=== PATIENT | female | born 1995 | race Two or more races ===

== ENCOUNTER 2021-11-28 00:59 | Emergency (ER) | payer OTHER ==
[~2021-11-28] VITALS: Ht 165.1 cm; Wt 73.0 kg
[2021-11-28] MEDS ORDERED: ONDANSETRON ODT4 MG PO (05:01)
[2021-11-28] MEDS ORDERED: PEPCID40 MG PO (05:01)
== END 2021-11-28 05:11 ==
LOC: ER 00:59
DX: O20.9 Hemorrhage in early pregnancy, unspecified (principal); Z3A.01 Less than 8 weeks gestation of pregnancy